=== PATIENT | female | born 1970 | race American Indian/Alaskan Native ===

== ENCOUNTER 2017-02-28 05:06 | Inpatient (IN) | payer MEDICAID, OTHER ==
[2017-02-28] MEDS ORDERED: LACTATED RINGERS 2,000 ML ONE (05:27)
[2017-02-28] MEDS: LACTATED RINGERS 1,000 ML IV SCH ×2 (05:30→07:02)
[2017-02-28] MEDS ORDERED: REGLAN IV ONE (06:01)
[2017-02-28] MEDS ORDERED: PEPCID IV ONE (06:01)
[2017-02-28] MEDS ORDERED: BICITRA PO ONE (06:01)
[2017-02-28] MEDS ORDERED: GARAMYCIN/NS 120MG/100ML 120 MG/100 ML BAG IV ONE (06:22)
[2017-02-28 06:41] LABS: Basophils % (Auto) 0.2 % (0.0-1.8); Eosinophils % (Auto) 0.8 % (0.0-4.3); Hematocrit 37.6 % (30.3-42.9); Hemoglobin 12.3 gm/dl (10.1-14.3); Mean Corpuscular HGB Conc 33 % (30-34); Mean Corpuscular Hemoglobin 29 pg (28-32); Mean Corpuscular Volume 88 fl (79-97); Red Cell Distribution Width 16.7 % (13.2-15.2); White Blood Count 7.4 K/mm3 (4.5-11.0)
[2017-02-28] MEDS ORDERED: CLEOCIN 600 MG/50 mL 600 MG/50 ML BAG IV NR (07:00)
[2017-02-28] MEDS ORDERED: PITOCin/NS 20 UNIT/1000ML DRIP 20 UNITS/1,000 ML BAG IV SCH ×2 (07:00→10:00)
--- NOTE | 2017-02-28 07:26 | Anesthesia Consultation ---
Anesthesia Consult and Med Hx Date of service: 02/28/17 - Airway Anesthetic Teeth Evaluation: Good, Partials (right upper "flipper" tooth) ROM Head & Neck: Adequate Mental/Hyoid Distance: Adequate Mallampati Class: Class II Intubation Access Assessment: Probably Good - Pre-Operative Health Status ASA Pre-Surgery Classification: ASA3 Proposed Anesthetic Plan: Epidural, Spinal - Pulmonary Hx Asthma: Yes (albuterol inhaler- not used w/) COPD: No Hx Pneumonia: No - Cardiovascular System Hx Hypertension: No - Central Nervous System Hx Seizures: No Hx Psychiatric Problems: No - Endocrine Hx Renal Disease: No Hx End Stage Renal Disease: No Hx Hypothyroidism: No Hx Hyperthyroidism: No - Hematic Hx Anemia: Yes Hx Sickle Cell Disease: No - Other Systems Hx Alcohol Use: No Hx Obesity: Yes (Morbid obesity)
--- NOTE | 2017-02-28 07:28 | Anesthesia Day of Surgery ---
Anesthesia Day of Surgery - Day of Surgery Patient Examined: Yes Patient H&P Reviewed: Yes Patient is NPO: Yes
[2017-02-28 07:39] LABS: Platelet Count 132 K/mm3 (140-440)
--- NOTE | 2017-02-28 07:39 | History and Physical Report ---
History of Present Illness Date of examination: 02/28/17 Date of admission: 02/28/17 05:06 Chief complaint: scheduled c/sec for repeat History of present illness: This is a 46 yo at 39 weeks here for scheduled c/sec for obesity and repeat and AMA. 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 denies: smoking, alcohol abuse, prescription drug abuse - Obstetrical History Expected Date of Delivery: 03/08/17 Actual Gestation: 38 Week(s) 6 Day(s) : 6 Para: 4 Hx # Term Pregnancies: 3 Number of Pregnancies: 0 Spontaneous Abortions: 0 Induced : 0 Number of Living Children: 4 Medications and Allergies Allergies Allergy/AdvReac Type Severity Reaction Status Date / Time ampicillin Allergy Rash Verified 07/22/16 16:46 codeine Allergy Shortness Verified 07/22/16 16:46 of Breath Home Medications Medication Instructions Recorded Confirmed Last Taken Type Doxylamine/Pyridoxine HCl 1 each PO QHS PRN #30 tablet. 07/23/16 Unknown Rx [Bertin Orozco 10-10 mg Tablet] Vit W-Ca,Fe,FA(<1 mg) 1 each PO QDAY #30 tablet 07/23/16 Unknown Rx [ Vitamins] Active Meds: Active Medications Diphenhydramine HCl (Benadryl) 12.5 mg IV Q2H PRN PRN Reason: Itching Hydromorphone HCl (Dilaudid) 0.5 mg IV Q4H PRN PRN Reason: breakthrough pain > 7/10 Lactated Ringer's (Lactated Ringers) 1,000 mls @ 2,250 mls/hr IV PREOP LIZZ Stop: 03/01/17 07:27 Last Admin: 02/28/17 07:02 Dose: 2,250 mls/hr Oxytocin/Sodium Chloride (Pitocin/Ns 20 Unit/1000ml Drip) 20 units in 1,000 mls @ 0 mls/hr IV TITR LIZZ PRN Reason: As Directed Ketorolac Tromethamine (Toradol) 30 mg IV Q6H PRN PRN Reason: Pain, Moderate (4-6) Stop: 03/05/17 07:28 Naloxone HCl (Narcan 0.4 Mg/1 Ml) 0.2 mg IV Q2MIN PRN PRN Reason: Res Rate </= 8 or 02 SAT < 92% Stop: 03/02/17 07:29 Ondansetron HCl (Zofran) 4 mg IV Q8H PRN PRN Reason: Nausea And Vomiting Sodium Chloride (Sodium Chloride Flush Syringe 10 Ml) 10 ml IV PRN NR - Vital Signs Vital signs: Vital Signs Temp Pulse Resp BP Pulse Ox 97.9 F 96 H 18 120/81 97 02/28/17 05:50 02/28/17 05:50 02/28/17 05:50 02/28/17 05:50 02/28/17 05:50 Temp Pulse Resp BP Pulse Ox 97.9 F 97 H 18 120/81 98 02/28/17 05:50 02/28/17 05:59 02/28/17 05:50 02/28/17 05:58 02/28/17 05:59 - Physical Exam Breasts: Positive: normal Cardiovascular: Regular rate, Normal S1 Lungs: Positive: Clear to auscultation, Normal air movement Abdomen: Positive: normal appearance, soft, normal bowel sounds. Negative: distention, tenderness Genitourinary (Female): Positive: normal external genitalia, normal perenium Vulva: both: normal Vagina: Positive: normal moisture Uterus: Positive: normal size, normal contour Anus/Rectum: Positive: normal perianal skin Extremities: Positive: normal Deep Tendon Reflex Grade: Normal +2 - Obstetrical FHR: category 1 Results Result Diagrams: 02/28/17 05:20 Abnormal lab results 02/28/17 Range/Units 05:20 RDW 16.7 H (13.2-15.2) % All other labs normal. Assessment and Plan A/P IUP 38+6 weeks Morbid Obesity AMA Asthma Repeat c/sec IVF, and inital labs Repeat c/sec
[2017-02-28] MEDS ORDERED: MORPHINE ONE (07:53)
[2017-02-28] MEDS ORDERED: DILAUDID IV PRN (08:00)
[2017-02-28] MEDS ORDERED: BENADRYL IV PRN (08:00)
[2017-02-28] MEDS ORDERED: ZOFRAN IV PRN (08:00)
[2017-02-28] MEDS ORDERED: NARCAN 0.4 MG/1 ML IV PRN ×2 (08:00→09:41)
[2017-02-28] MEDS ORDERED: TORADOL IV PRN (08:00)
[2017-02-28] MEDS ORDERED: SODIUM CHLORIDE FLUSH SYRINGE 10 ML IV PRN (08:00)
[2017-02-28] MEDS ORDERED: WATER FOR IRRIG STERILE IR ONE (08:27)
[2017-02-28] MEDS ORDERED: NACL 0.9% IR ONE (08:28)
[2017-02-28] MEDS ORDERED: ZOFRAN ONE (08:47)
[2017-02-28] MEDS ORDERED: NACL 0.9% 1000 ML 1,000 ML ONE (08:56)
[2017-02-28] MEDS ORDERED: NEO SYNEPHRINE/NS Syringe(OR USE) IV ONE (09:00)
--- NOTE | 2017-02-28 09:33 | Procedure Note ---
OB Delivery Note - Delivery Date of Delivery: 02/28/17 Surgeon: MALCOLM REEDER Estimated blood loss: other (700 cc) - Section Preop diagnosis: repeat Postop diagnosis: same section procedure: section Disposition: PACU Complications: none Narrative: see op report - Infant A at 1 minute: 8 at 5 minutes: 9 Infant Gender: Male
--- NOTE | 2017-02-28 09:40 | Operative Report ---
Operative Report Operative Report: PREOPERATIVE DIAGNOSES: 1. Intrauterine at 38+6 weeks. 2. History of previous section x1. The patient desires a repeat section. 3. Morbid obesity POSTOPERATIVE DIAGNOSES: 1. Intrauterine at 38+6 weeks. 2. History of previous section x1. The patient desires a repeat section. 3.Morbid obesity 4.Adhesions PROCEDURE PERFORMED: Repeat section , lysis of adhesions ANESTHESIA: Epidural ESTIMATED BLOOD LOSS: 800 mL. COMPLICATIONS: None. FINDINGS: Male infant in cephalic presentation with anteflexed head, Apgars were 8 at 1 minute and 9 at 5 minutes, weight 7 pounds 12 ounces. Normal uterus , tubes, and ovaries were noted. INDICATIONS: The patient is a 46-year-old 6, para 4 female, who presented to repeat section at term. The patient has a history of 1 previous sections and she desires a repeat section, The procedure was described to the patient in detail including possible risks of bleeding, infection, injury to surrounding organs, and the possible need for further surgery and informed consent was obtained. PROCEDURE NOTE: The patient was taken to the operating room where Epidural anesthesia was administered without difficulty. The patient was prepped and draped in the usual sterile fashion in the dorsal supine position with a leftward tilt. A Pfannenstiel skin incision was made with the scalpel and carried through to the underlying layer of fascia using the Bovie. The fascia was incised in the midline and extended laterally using Silvestre scissors. Angelica clamps were used to elevate the superior aspect of the fascial incision, which was elevated, and the underlying rectus muscles were dissected off bluntly and using Silvestre scissors. Attention was then turned to the inferior aspect of the fascial incision, which in similar fashion was grasped with Angelica clamps, elevated, and the underlying rectus muscles were dissected off bluntly and using the Bovie. The rectus muscles were dissected in the midline. A large adhesions from peritoneum attached to the uterus on the left side of patietn with suture lysis of adhesions.a Serge was then able to be inserted easily. The peritoneum was identified and entered using Metzenbaum scissors; this incision was extended superiorly and inferiorly with good visualization of the bladder. The bladder blade was inserted. The vesicouterine peritoneum was identified and entered sharply using Metzenbaum scissors. This incision was extended laterally and the bladder flap was created digitally. The bladder blade was reinserted. The lower uterine segment was incised in a transverse fashion using the scalpel and extended using bandage scissors as well as manual traction. Clear fluid was noted. The was delivered easily . The nose and mouth were bulb suctioned. The cord was clamped and cut. The infant was subsequently handed to the awaiting nursery nurse. The placenta was delivered spontaneously intact with a three-vessel cord noted. The uterus was exteriorized and cleared of all clots and debris. The uterine incision was repaired in 2 layers using 0 chromic sutures. Hemostasis was visualized.The uterine incision was reexamined and it was noted to be hemostatic.The bed of the adhesion attachedment was minimal bleeding and thiseseel and surgicell used with good hemostasis. The pelvis was copiously irrigated. The rectus muscles were reapproximated in the midline using 3-0 Vicryl. The fascia was closed with 0 Vicryl suture, the subcutaneous layer was closed with 0 vicryl., and the skin was closed with nae needle . Sponge, lap, and instrument counts were correct x2. The patient was stable at the completion of the procedure and was subsequently transferred to the recovery room in stable condition.
[2017-02-28] MEDS ORDERED: ANUCORT-HC PR PRN (09:41)
[2017-02-28] MEDS ORDERED: MYLICON PO PRN (09:41)
[2017-02-28] MEDS ORDERED: PERCOCET 5/325 PO PRN (09:41)
[2017-02-28] MEDS ORDERED: LANSINOH TP PRN (09:41)
[2017-02-28] MEDS ORDERED: MILK OF MAGNESIA PO PRN (09:41)
[2017-02-28] MEDS ORDERED: PHENERGAN PR PRN (09:41)
[2017-02-28] MEDS ORDERED: MORPHINE IV PRN ×2 (09:41)
[2017-02-28] MEDS ORDERED: SENOKOT PO PRN (09:41)
[2017-02-28] MEDS ORDERED: TUCKS PAD TP PRN (09:41)
[2017-02-28] MEDS ORDERED: TYLENOL PR PRN (09:41)
[2017-02-28] MEDS ORDERED: NORCO 5/325 PO PRN (09:41)
[2017-02-28] MEDS ORDERED: SODIUM CHLORIDE FLUSH SYRINGE 10 ML IV NR (10:00)
--- NOTE | 2017-02-28 18:28 | Post Anesthesia Evaluation ---
- Post Anesthesia Evaluation Patient Participated: Yes Airway Patent: Yes Stable Respiratory Function: Yes Nausea/Vomiting: No Temp > 96.8F: Yes Pain Manageable: Yes Adequeate Hydration: Yes Anesthesia Complications: No Block Receding Appropriately: Yes Patient on Ventilator: No
[2017-02-28 22:14] LABS: Hematocrit 31.5 % (30.3-42.9); Hemoglobin 10.6 gm/dl (10.1-14.3)
[2017-03-01] MEDS: MOTRIN PO PRN ×3 (02:12→23:48)
--- NOTE | 2017-03-01 09:10 | Progress Note ---
Subjective Date of service: 03/01/17 Interval history: Epidural has been removed. Patient is doing well. Objective - Constitutional Vitals: Vital Signs - 12hr 03/01/17 03/01/17 03/01/17 00:00 04:00 04:02 Temperature 99.0 F 98.6 F 98.5 F Pulse Rate 98 H 71 96 H Respiratory 18 16 18 Rate Blood Pressure 118/66 131/76 84/44 - Labs CBC & Chem 7: 02/28/17 21:34
[2017-03-01] MEDS ORDERED: M-M-R II VACCINE SUB-Q ONE (09:42)
[2017-03-01] MEDS ORDERED: BOOSTRIX IM ONE (09:42)
[2017-03-01] MEDS: PRENATAL VITAMIN PO SCH (10:25)
[2017-03-01] MEDS: FEOSOL PO SCH (10:25)
[2017-03-01] MEDS: PERCOCET 5/325 PO PRN ×4 (10:25→23:45)
--- NOTE | 2017-03-01 15:34 | Progress Note ---
Assessment and Plan O: VSS AF PP H/H: 10.6/31.5 A: Stable PP Day 1 Anemia P: Iron daily Subjective - Subjective Date of service: 03/01/17 Patient reports: appetite normal, voiding normally, pain well controlled, flatus , ambulating normally : doing well, bottle feeding Objective - Vital Signs Latest vital signs: Vital Signs Temp Pulse Resp BP 03/01/17 08:39 98.6 F 72 20 100/70 03/01/17 04:02 98.5 F 96 H 18 84/44 03/01/17 04:00 98.6 F 71 16 131/76 03/01/17 00:00 99.0 F 98 H 18 118/66 02/28/17 20:00 98.2 F 95 H 20 117/69 02/28/17 17:04 98.1 F 84 16 100/60 Intake and Output 03/01/17 03/01/17 03/01/17 06:59 14:59 22:59 Intake Total 550 840 Output Total 1600 Balance -1050 840 Intake: Oral 250 840 Intake, Free Water 300 Output: Urine 1600 Void 1600 Other: Total, Intake Amount 250 360 Total, Output Amount 600 # Voids Void 1 1 - Exam Breasts: Present: deferred Lungs: Present: Normal air movement Abdomen: Present: normal appearance, soft. Absent: distention, tenderness Uterus: Present: normal, firm, fundal height below umbilicus. Absent: bogginess , tenderness Extremities: Present: normal Incision: Present: normal, dry, intact, other (steri strips in place)
[2017-03-02] MEDS: PERCOCET 5/325 PO PRN (05:16)
[2017-03-02] MEDS: MOTRIN PO PRN ×2 (06:04→14:36)
[2017-03-02] MEDS: FEOSOL PO SCH (11:31)
[2017-03-02] MEDS: PRENATAL VITAMIN PO SCH (11:31)
--- NOTE | 2017-03-02 13:35 | Progress Note ---
Assessment and Plan O: VSS Af A: Stable POD # 2 P; D/C home Routine PP orders Subjective - Subjective Date of service: 03/02/17 Patient reports: appetite normal, voiding normally, pain well controlled, flatus , ambulating normally : doing well, nursing well Objective - Vital Signs Latest vital signs: Vital Signs Temp Pulse Resp BP 03/02/17 08:00 97.8 F 74 20 112/62 03/02/17 00:00 97.9 F 95 H 20 124/69 03/01/17 16:36 98.2 F 72 20 100/64 Intake and Output 03/01/17 03/02/17 03/02/17 22:59 06:59 14:59 Intake Total 240 240 Balance 240 240 Intake: Oral 240 240 Other: Total, Intake Amount 240 240 # Voids Void 1 1 1 - Exam Lungs: Present: Normal air movement Abdomen: Present: normal appearance, soft. Absent: distention, tenderness Uterus: Present: normal, firm, fundal height below umbilicus. Absent: bogginess , tenderness Extremities: Present: normal Incision: Present: normal, dry, intact
--- NOTE | 2017-03-02 13:40 | Discharge Summary ---
Providers - Providers Date of Admission: 02/28/17 05:06 Date of discharge: 03/02/17 Attending physician: NORMA SANDHU Primary care physician: MALCOLM REEDER MD Hospitalization Reason for admission: IUP at term Delivery: Procedure: repeat low transverse Episiotomy: none Incision: normal, dry, intact Discharge diagnosis: IUP at term delivered baby: male Condition at discharge: Good Disposition: DC-01 TO HOME OR SELFCARE Plan - Discharge Medications Prescriptions: Acetaminophen with Codeine [Acetaminophen-Codeine #4 TAB] 2 each PO Q6HR PRN # 30 tablet PRN Reason: severe pain Ibuprofen [Motrin 800 MG tab] 800 mg PO Q6H PRN #30 tablet PRN Reason: Pain, Mild (1-3) - Provider Discharge Summary Activity: routine, no sex for 6 weeks, no heavy lifting 4 weeks, no strenuous exercise Diet: routine Instructions: routine Additional instructions: [] Smoking cessation referral if applicable(refer to patient education folder for contact #) [] Refer to [facility]'s [facility] Booklet Call your doctor immediately for: * Fever > 100.5 * Heavy vaginal bleeding ( >1 pad per hour) * Severe persistent headache * Shortness of breath * Reddened, hot, painful area to leg or breast * Drainage or odor from incision. * Keep incision clean and dry at all times and follow doctor's instructions regarding bathing/showering - Follow up plan Follow up: MALCOLM REEDER MD [Primary Care Provider] - 14 Days (call office to schedule infant circumcision)
[2017-03-02 15:49] VITALS: BP 116/74
== END 2017-03-02 15:30 | disposition home or self-care (01) | DRG 765 ==
LOC: APU 05:06 → OB 10:59
PROVIDERS: ADMIT Obstetrics & Gynecology; ATTEND Obstetrics & Gynecology
PROC: 10D00Z1 Extraction of Products of Conception, Low, Open Approach (ICD-10-PCS; principal; 2017-02-28)
PROC: 3E0234Z Introduction of Serum, Toxoid and Vaccine into Muscle, Percutaneous Approach (ICD-10-PCS; 2017-02-28)
DX: O34.211 Maternal care for low transverse scar from previous cesarean delivery (principal); Z68.41 Body mass index [BMI] 40.0-44.9, adult; O99.214 Obesity complicating childbirth; O99.52 Diseases of the respiratory system complicating childbirth; E66.01 Morbid (severe) obesity due to excess calories; J45.909 Unspecified asthma, uncomplicated; O99.03 Anemia complicating the puerperium; D64.9 Anemia, unspecified; Z3A.38 38 weeks gestation of pregnancy; Z37.0 Single live birth; O09.523 Supervision of elderly multigravida, third trimester; Z82.49 Family history of ischemic heart disease and other diseases of the circulatory system; Z83.3 Family history of diabetes mellitus; Z88.5 Allergy status to narcotic agent; Z88.1 Allergy status to other antibiotic agents; Z23 Encounter for immunization
CPT/HCPCS: 36415; 59025; 85014; 85018; 85025; 86850; 86900; 86901; 96360; 96361; 99211; G0463; J1580; J1885; J2270; J2370; J2405; J2590; J2765; J7030; J7120

== ENCOUNTER 2017-03-26 13:41 | Emergency (ER) | payer OTHER ==
[2017-03-26 15:32] LABS: Bilirubin,Urine NEG (Negative); Blood,Urine MOD (Negative); Ketones,Urine NEG (Negative); Leukocyte Esterase,Urine MOD (Negative); Mucus,Urine FEW /HPF; Nitrite,Urine NEG (Negative); Protein,Urine <15 mg/dL mg/dL (Negative); Urobilinogen,Urine < 2.0 mg/dL (<2.0)
[2017-03-26] MEDS ORDERED: ZOFRAN IV ONE (22:50)
[2017-03-26] MEDS ORDERED: DILAUDID IV ONE (22:50)
[2017-03-26 23:02] VITALS: BP 142/81
[2017-03-26] MEDS ORDERED: TORADOL ONE (23:19)
[2017-03-26] MEDS ORDERED: TORADOL IV ONE (23:20)
[2017-03-27 00:26] LABS: Basophils % (Auto) 0.6 % (0.0-1.8); Eosinophils % (Auto) 7.6 % (0.0-4.3); Hematocrit 40.1 % (30.3-42.9); Hemoglobin 13.1 gm/dl (10.1-14.3); Mean Corpuscular HGB Conc 33 % (30-34); Mean Corpuscular Hemoglobin 28 pg (28-32); Mean Corpuscular Volume 85 fl (79-97); Platelet Count 282 K/mm3 (140-440)
[2017-03-27 00:34] LABS: Alanine Aminotransferase 16 units/L (7-56); Albumin 4.1 g/dL (3.9-5); Albumin/Globulin Ratio 1.1 %; Alkaline Phosphatase 54 units/L (35-129); BUN/Creatinine Ratio 12.85; Blood Urea Nitrogen 9 mg/dL (7-17); Calcium 9.3 mg/dL (8.4-10.2); Carbon Dioxide 24 mmol/L (22-30); Chloride 100.8 mmol/L (98-107); Glucose 96 mg/dL (65-100); Sodium 140 mmol/L (137-145)
[2017-03-27] MEDS ORDERED: NACL ONE (00:36)
[2017-03-27 00:45] LABS: Anion Gap 19 mmol/L
--- NOTE | 2017-03-27 01:52 | Cat Scan Report ---
FINAL REPORT PROCEDURE: CT ANGIO CHEST TECHNIQUE: Computerized tomographic angiography of the chest was performed after the IV injection of iodinated nonionic contrast including image processing. The image data was postprocessed using 2-dimensional multiplanar reformatted (MPR) and 3-dimensional (MIP and/or volume rendered) techniques. HISTORY: cp, left arm pain, r/o pe COMPARISON: No prior studies are available for comparison. FINDINGS: Heart and pericardium: Normal. Thoracic aorta: Normal. Pulmonary vasculature: Normal. Lymph nodes: No enlarged thoracic lymph nodes. Lungs: Normal. Pleural space: No effusion, thickening, or pneumothorax. Musculoskeletal structures: No significant abnormality. Upper abdominal structures: No significant abnormality. IMPRESSION: Normal Examination
--- NOTE | 2017-03-27 02:10 | Emergency Department Report ---
HPI - General Chief Complaint: Extremity Injury, Upper Time Seen by Provider: 03/26/17 22:34 - HPI HPI: Patient with recent vaginal delivery came to the ED with left shoulder, left chest pain for 2 days. Patient describes the pain as dull ache, 7 out of 10 without alleviating or exacerbating factors. ED Past Medical Hx - Past Medical History Hx Hypertension: No Hx Congestive Heart Failure: No Hx Diabetes: No Hx Deep Vein Thrombosis: No Hx Renal Disease: No Hx Sickle Cell Disease: No Hx Seizures: No Hx Asthma: Yes (albuterol inhaler- not used w/) Hx COPD: No Hx HIV: No - Surgical History Additional Surgical History: 2 ,ectopic preg.(2) - Social History Smoking Status: Never Smoker Substance Use Type: None - Medications Home Medications: Home Medications Medication Instructions Recorded Confirmed Last Taken Type Vit W-Ca,Fe,FA(<1 mg) 1 each PO QDAY #30 tablet 07/23/16 02/28/1702/27 18:00 Rx [ Vitamins] 1 Ferrous Sulfate [Feosol] 325 mg PO BID 02/28/17 02/28/17 02/27/17 18:00 History 1 Acetaminophen with Codeine 2 each PO Q6HR PRN #30 tablet 03/02/17 Unknown Rx [Acetaminophen-Codeine #4 TAB] Ibuprofen [Motrin 800 MG tab] 800 mg PO Q6H PRN #30 tablet 03/02/17 Unknown Rx methOCARBAMOL [Robaxin TAB] 500 mg PO Q6H PRN #30 tablet 03/27/17 Unknown Rx ED Review of Systems ROS: Stated complaint: LEFT ARM PAIN X 1 WEEK Other details as noted in HPI Comment: All other systems reviewed and negative Gastrointestinal: as per HPI Musculoskeletal: arthralgia, myalgia Physical Exam - Physical Exam Vital Signs: Vital Signs 03/26/17 03/26/17 03/26/17 13:52 18:12 22:53 Temperature 98.1 F 98.3 F 97.8 F Pulse Rate 80 80 78 Respiratory 20 18 18 Rate Blood Pressure 141/93 145/93 142/81 O2 Sat by Pulse 98 100 98 Oximetry 03/26/17 23:29 Temperature Pulse Rate Respiratory 16 Rate Blood Pressure O2 Sat by Pulse 100 Oximetry Physical Exam: GENERAL: The patient is well-developed well-nourished [] HEENT: Normocephalic. Atraumatic. Extraocular motions are intact. Patient has moist mucous membranes. NECK: Supple. No meningitic signs are noted. There is no adenopathy noted. CHEST/LUNGS: Clear to auscultation. There is no respiratory distress noted. HEART/CARDIOVASCULAR: Regular. There is no tachycardia. There is no gallop rub or murmur. ABDOMEN: Abdomen is soft, nontender. Patient has normal bowel sounds. There is no abdominal distention. SKIN: There is no rash. There is no edema. There is no diaphoresis. NEURO: The patient is awake, alert, and oriented. The patient is cooperative. The patient has no focal neurologic deficits. The patient has normal speech. Cranial nerves II through XII grossly intact, no drift. Moves all extremities well MUSCULOSKELETAL: There is no evidence of acute injury. ED Course Vital Signs 03/26/17 03/26/17 03/26/17 13:52 18:12 22:53 Temperature 98.1 F 98.3 F 97.8 F Pulse Rate 80 80 78 Respiratory 20 18 18 Rate Blood Pressure 141/93 145/93 142/81 O2 Sat by Pulse 98 100 98 Oximetry 03/26/17 23:29 Temperature Pulse Rate Respiratory 16 Rate Blood Pressure O2 Sat by Pulse 100 Oximetry ED Medical Decision Making - Lab Data Result diagrams: 03/26/17 23:57 03/26/17 23:57 Critical care attestation.: If time is entered above; I have spent that time in minutes in the direct care of this critically ill patient, excluding procedure time. ED Disposition Clinical Impression: Left arm pain Disposition: DC-01 TO HOME OR SELFCARE Is pt being admited?: No Does the pt Need Aspirin: No Condition: Stable Instructions: Arthralgia (ED) Prescriptions: methOCARBAMOL [Robaxin TAB] 500 mg PO Q6H PRN #30 tablet PRN Reason: Pain Referrals: MALCOLM REEDER MD [Primary Care Provider] - 3-5 Days
--- NOTE | 2017-03-27 17:10 | Vascular Lab Report ---
LEFT UPPER EXTREMITY VENOUS DUPLEX: REASON FOR EXAM: Pain of the left upper extremity COMMENTS ON THE LEFT: All arm veins visualized are freely compressible without evidence of internal echogenicity. The subclavian and internal jugular veins are free of thrombus. Flow is spontaneous and phasic throughout. COMMENTS ON THE RIGHT: The subclavian and internal jugular veins are free of thrombus. IMPRESSION: No evidence of acute or chronic deep venous thrombosis in the left upper extremity.
== END 2017-03-27 02:24 | disposition home or self-care (01) ==
LOC: ED 13:41
DX: M25.512 Pain in left shoulder (principal); R07.9 Chest pain, unspecified
CPT/HCPCS: 36415; 71275; 80053; 81001; 85025; 93971; 96374; 96375; 99284; J1885; J2405; Q9967